=== PATIENT | female | born 1990 | race Two or more races ===

== ENCOUNTER 2016-12-10 16:45 | Emergency (ER) | payer SELFPAY ==
[~2016-12-10] VITALS: Ht 152.4 cm; Wt 82.6 kg
[2016-12-10 17:00] VITALS: BP 138/78
[2016-12-10 17:31] LABS: BILIRUBIN,URINE NEGATIVE (NEG); GLUCOSE,URINE NEGATIVE (NEG); NITRITE,URINE NEGATIVE (NEG); PH,URINE 5.5; PROTEIN,URINE NEGATIVE (NEG-TRACE); UROBILINOGEN,URINE 0.2 mg/dL (0.2 mg/dL)
[2016-12-10 17:43] LABS: RBC,URINE 0 /HPF (0-2)
[2016-12-10 17:44] LABS: BACTERIA,URINE FEW /HPF (0-FEW); SQUAMOUS EPITHELIAL CELL,UR MOD /LPF; WBC,URINE OCC /HPF (0-4)
--- NOTE | 2016-12-10 22:27 | ED.ADGEN ---
Past Medical History Past Medical History: No Pertinent History Past Surgical History: No Surgical History Alcohol Use: None Drug Use: None Adult General Chief Complaint Chief Complaint: ABDOMINAL PAIN HPI HPI Patient is a 26 year old woman, with no significant past no history, who presents emergency department with multiple complaints. Patient states that she is experiencing "burning of the face" she was her face today, denies any new contacts or exposures. She also states she is experiencing some mid abdominal pain, constipation, and is concerned that she may have hemorrhoids. States that she noted blood on the toilet paper when she wiped after having a bowel movement today. Denies any bleeding currently, any bleeding from vagina, no urinary complaints no discharge or drainage. Patient also is complaining that she occasionally have swelling or a feeling of "tiredness", and her right knee. No injuries. Patient's father currently being evaluated in the emergency department for other complaints. No nausea or vomiting, no weakness emesis or tingling, chest pain or shortness of breath, no sick contacts or exposures, no rashes, no swelling of the extremities. Patient is primarily Monegasque speaking, translation is assisted by nurse Carpenter. Review of Systems Review of Systems Constitutional: Denies fever or chills. [] Eyes: Denies change in visual acuity. [] HENT: Denies nasal congestion or sore throat. [] Respiratory: Denies cough or shortness of breath. [] Cardiovascular: Denies chest pain or edema. [] GI: Denies abdominal pain, nausea, vomiting, bloody stools or diarrhea. [] : Denies dysuria. [] Musculoskeletal: Denies back pain or joint pain. [] Integument: Denies rash. [] Neurologic: Denies headache, focal weakness or sensory changes. [] Endocrine: Denies polyuria or polydipsia. [] Lymphatic: Denies swollen glands. [] Psychiatric: Denies depression or anxiety. [] Allergies Allergies Allergies Coded Allergies Type Severity Reaction Last Updated Verified No Known Drug Allergies 12/10/16 No Physical Exam Physical Exam Constitutional: Well developed, well nourished, no acute distress, non-toxic appearance. [] HENT: Normocephalic, atraumatic, bilateral external ears normal, oropharynx moist, no oral exudates, nose normal. [] Eyes: PERRLA, EOMI, conjunctiva normal, no discharge. [] Neck: Normal range of motion, no tenderness, supple, no stridor. [] Cardiovascular:Heart rate regular rhythm, no murmur , S1, S2, rubs or gallops. [ ] Lungs & Thorax: Bilateral breath sounds clear to auscultation, no wheezing, rhonchi, rales. No chest wall crepitus or tenderness. [] Abdomen: Bowel sounds normal, soft, no tenderness, no masses, no pulsatile masses. [] Skin: Warm, dry, no erythema, no rash. [] Back: No tenderness, no CVA tenderness. [] Extremities: No tenderness, no cyanosis, no clubbing, ROM intact, no edema. Negative Homans sign. [] Neurologic: Alert and oriented X 3, normal motor function, normal sensory function, no focal deficits noted. [] Psychologic: Affect normal, judgement normal, mood normal. [] Current Patient Data Vital Signs Vital Signs Date Time Temp Pulse Resp B/P (MAP) Pulse Ox O2 Delivery O2 Flow Rate FiO2 12/10/16 17:00 98.6 90 16 138/78 (98) 100 Room Air 98.6 Lab Values Laboratory Tests Test 12/10/16 16:04 12/10/16 17:00 POC Urine HCG, Qualitative Hcg negative (Negative) Urine Color Yellow Urine Clarity Clear Urine pH 5.5 Urine Specific Webster 1.010 Urine Protein Negative mg/dL (NEG-TRACE) Urine Glucose (UA) Negative mg/dL (NEG) Urine Ketones (Stick) Negative mg/dL (NEG) Urine Blood Negative (NEG) Urine Nitrite Negative (NEG) Urine Bilirubin Negative (NEG) Urine Urobilinogen Dipstick 0.2 mg/dL (0.2 mg/dL) Urine Leukocyte Esterase Negative (NEG) Urine RBC 0 /HPF (0-2) Urine WBC Occ /HPF (0-4) Urine Squamous Epithelial Cells Mod /LPF Urine Bacteria Few /HPF (0-FEW) EKG EKG Not indicated. [] Radiology/Procedures Radiology/Procedures Not indicated. [] Course & Med Decision Making Course & Med Decision Making Pertinent Labs and Imaging studies reviewed. (See chart for details) Patient well-appearing, no signs of facial swelling or areas of irritation, no evidence of mucosal or dental abnormalities, no neck abnormalities, lungs are clear bilaterally, no evidence of swelling rashes or other concerning findings on examination of the knee. No hemorrhoids noted, patient's rectal examination reveals no blood, nontender, with normal tone, no masses palpated. HCG is negative, urinalysis is negative for evidence of infection. This patient is complaining of occasional constipation which causes her to have to strain to have bowel movements, I did discuss dietary changes and importance of staying well-hydrated with patient. Discussed use of gentle products for skin care, and concerning symptoms that prompt return to the emergency department. Patient was given discharge instructions with dietary recommendations for increasing fiber, stay well-hydrated, and importance of establishing a primary care provider for general medical care. Patient voiced understanding and agreement, discharged home in stable condition with plan as above. Dragon Disclaimer Dragon Disclaimer This electronic medical record was generated, in whole or in part, using a voice recognition dictation system. Departure Impression: Primary Impression: Constipation Disposition: 01 HOME, SELF-CARE Condition: STABLE YASIR JIANG DO Dec 10, 2016 22:27
== END 2016-12-10 18:10 | disposition home or self-care (01) ==
LOC: ER 16:45
DX: K59.00 Constipation, unspecified (principal); R22.41 Localized swelling, mass and lump, right lower limb; L98.8 Other specified disorders of the skin and subcutaneous tissue
CPT/HCPCS: 81001; 81025; 99283

== ENCOUNTER 2021-05-18 02:59 | Emergency (ER) | payer SELFPAY ==
[~2021-05-18] VITALS: Ht 167.6 cm; Wt 82.0 kg
[2021-05-18 04:18] LABS: BASO # 0.1 x10^3/uL (0.0-0.2); BASO % 0 % (0-3); EOS # 0.2 x10^3/uL (0.0-0.7); EOS % 1 % (0-3); HEMATOCRIT 39.4 % (36.0-47.0); HEMOGLOBIN 13.7 g/dL (12.0-15.5); LYMPH # 2.4 x10^3/uL (1.0-4.8); LYMPH % 16 % (24-48); MEAN CORPUSCULAR HEMOGLOBIN 31 pg (25-35); MEAN CORPUSCULAR HGB CONC 35 g/dL (31-37); MEAN CORPUSCULAR VOLUME 88 fL (79-100); MONO # 0.9 x10^3/uL (0.0-1.1); MONO % 6 % (0-9); NEUT # 11.9 x10^3/uL (1.8-7.7); NEUT % 77 % (31-73); PLATELET COUNT 254 x10^3/uL (140-400); RED BLOOD COUNT 4.49 x10^6/uL (3.50-5.40); RED CELL DISTRIBUTION WIDTH 12.3 % (11.5-14.5); WHITE BLOOD COUNT 15.5 x10^3/uL (4.0-11.0)
[2021-05-18 04:26] LABS: CALCIUM 9.4 mg/dL (8.5-10.1); CREATININE 0.6 mg/dL (0.6-1.0); GFR 118.2; POTASSIUM 3.7 mmol/L (3.5-5.1)
[2021-05-18 04:33] LABS: ALBUMIN 3.1 g/dL (3.4-5.0); ALBUMIN/GLOBULIN RATIO 0.7 (1.0-1.7); TOTAL BILIRUBIN 0.2 mg/dL (0.2-1.0); TOTAL PROTEIN 7.3 g/dL (6.4-8.2)
[2021-05-18 04:36] VITALS: BP 125/58
[2021-05-18 04:44] LABS: BILIRUBIN,URINE NEGATIVE (NEG); CLARITY,URINE CLEAR; COLOR,URINE YELLOW; NITRITE,URINE NEGATIVE (NEG); PROTEIN,URINE NEGATIVE (NEG-TRACE); UROBILINOGEN,URINE 0.2 mg/dL (0.2 mg/dL)
[2021-05-18 04:52] LABS: BACTERIA,URINE FEW /HPF (0-FEW); RBC,URINE 0 /HPF (0-2); WBC,URINE OCC /HPF (0-4)
--- NOTE | 2021-05-18 05:02 | PHYS DOC ---
Past Medical History Past Medical History: No Pertinent History Additional Past Medical Histor: POLYSYSTIC SYNDROME Past Surgical History: No Surgical History Smoking Status: Never Smoker Alcohol Use: None Drug Use: None General Adult EDM: Chief Complaint: ABDOMINAL PAIN IN HPI: HPI: Patient is a 31 year old female presents with the chief complaint of lower abdominal pain. Pain started today. Patient is -- last menstral period in february. Routine checkup at clinic found out she was within the last week. No associated nausea vomiting diarrhea. Patient denies any vaginal bleeding or vaginal discharge. Review of Systems: Review of Systems: Constitutional: Denies fever or chills. [] Eyes: Denies change in visual acuity. [] HENT: Denies nasal congestion or sore throat. [] Respiratory: Denies cough or shortness of breath. [] Cardiovascular: Denies chest pain or edema. [] GI: Denies abdominal pain, nausea, vomiting, bloody stools or diarrhea. [] : Denies dysuria. [] Musculoskeletal: Denies back pain or joint pain. [] Integument: Denies rash. [] Neurologic: Denies headache, focal weakness or sensory changes. [] Endocrine: Denies polyuria or polydipsia. [] Lymphatic: Denies swollen glands. [] Psychiatric: Denies depression or anxiety. [] Heart Score: C/O Chest Pain: N/A Risk Factors: Risk Factors: DM, Current or recent (<one month) smoker, HTN, HLP, family history of CAD, obesity. Risk Scores: Score 0 - 3: 2.5% MACE over next 6 weeks - Discharge Home Score 4 - 6: 20.3% MACE over next 6 weeks - Admit for Clinical Observation Score 7 - 10: 72.7% MACE over next 6 weeks - Early Invasive Strategies Allergies: Allergies: Allergies Coded Allergies Type Severity Reaction Last Updated Verified No Known Drug Allergies 12/10/16 No Physical Exam: PE: General: alert, no acute distress. Skin: warm, dry and intact, no erythema, no rash. HENT: bilateral external ears normal, oropharynx moist, nose normal. Head:: Normocephalic, atraumatic. Neck: Trachea midline. Eyes: EOMI, Normal conjunctiva, No drainage CARDIOVASCULAR: Regular rate and rhythm RESPIRATORY: No respiratory distress Back: Full range of motion. MUSCULOSKELETAL: Full range of motion of bilateral upper and lower extremities. GASTROINTESTINAL: Abdomen soft without rebound or guarding tenderness to palpation suprapubically left lower quadrant NEUROLOGICAL: Alert and noted to person, place and time. No neurological deficits observed Psychiatric: Cooperative. Normal judgment Current Patient Data: Labs: Laboratory Tests Test 05/18/21 03:58 05/18/21 04:00 05/18/21 04:14 Urine Collection Type Unknown Urine Color Yellow Urine Clarity Clear Urine pH 6.0 (<5.0-8.0) Urine Specific Barker 1.015 (1.000-1.030) Urine Protein Negative mg/dL (NEG-TRACE) Urine Glucose (UA) Negative mg/dL (NEG) Urine Ketones (Stick) Negative mg/dL (NEG) Urine Blood Negative (NEG) Urine Nitrite Negative (NEG) Urine Bilirubin Negative (NEG) Urine Urobilinogen Dipstick 0.2 mg/dL (0.2 mg/dL) Urine Leukocyte Esterase Negative (NEG) Urine RBC 0 /HPF (0-2) Urine WBC Occ /HPF (0-4) Urine Squamous Epithelial Cells Mod /LPF Urine Bacteria Few /HPF (0-FEW) Urine Mucus Slight /LPF POC Urine HCG, Qualitative Hcg positive (Negative) White Blood Count 15.5 x10^3/uL (4.0-11.0) H Red Blood Count 4.49 x10^6/uL (3.50-5.40) Hemoglobin 13.7 g/dL (12.0-15.5) Hematocrit 39.4 % (36.0-47.0) Mean Corpuscular Volume 88 fL (79-100) Mean Corpuscular Hemoglobin 31 pg (25-35) Mean Corpuscular Hemoglobin Concent 35 g/dL (31-37) Red Cell Distribution Width 12.3 % (11.5-14.5) Platelet Count 254 x10^3/uL (140-400) Neutrophils (%) (Auto) 77 % (31-73) H Lymphocytes (%) (Auto) 16 % (24-48) L Monocytes (%) (Auto) 6 % (0-9) Eosinophils (%) (Auto) 1 % (0-3) Basophils (%) (Auto) 0 % (0-3) Neutrophils # (Auto) 11.9 x10^3/uL (1.8-7.7) H Lymphocytes # (Auto) 2.4 x10^3/uL (1.0-4.8) Monocytes # (Auto) 0.9 x10^3/uL (0.0-1.1) Eosinophils # (Auto) 0.2 x10^3/uL (0.0-0.7) Basophils # (Auto) 0.1 x10^3/uL (0.0-0.2) Maternal Serum HCG Beta Subunit 16923 mIU/mL (0-5) H Sodium Level 137 mmol/L (136-145) Potassium Level 3.7 mmol/L (3.5-5.1) Chloride Level 103 mmol/L (98-107) Carbon Dioxide Level 25 mmol/L (21-32) Anion Gap 9 (6-14) Blood Urea Nitrogen 12 mg/dL (7-20) Creatinine 0.6 mg/dL (0.6-1.0) Estimated GFR (Cockcroft-Gault) 118.2 BUN/Creatinine Ratio 20 (6-20) Glucose Level 154 mg/dL (70-99) H Calcium Level 9.4 mg/dL (8.5-10.1) Total Bilirubin 0.2 mg/dL (0.2-1.0) Aspartate Amino Transferase (AST) 15 U/L (15-37) Alanine Aminotransferase (ALT) 27 U/L (14-59) Alkaline Phosphatase 114 U/L (46-116) Total Protein 7.3 g/dL (6.4-8.2) Albumin 3.1 g/dL (3.4-5.0) L Albumin/Globulin Ratio 0.7 (1.0-1.7) L Laboratory Tests 05/18/21 04:14 Laboratory Tests 05/18/21 04:14 Vital Signs: Vital Signs Date Time Temp Pulse Resp B/P (MAP) Pulse Ox O2 Delivery O2 Flow Rate FiO2 05/18/21 03:15 98.2 106 22 141/83 (102) 100 Room Air 98.2 EKG: EKG: [] Radiology/Procedures: Radiology/Procedures: [] Course & Med Decision Making: Course & Med Decision Making Pertinent Labs and Imaging studies reviewed. (See chart for details) [] Patient was evaluated for chief complaint labs obtained no acute ab normalities urine without signs of infection serum beta hCG greater than 60,000 and ultrasound performed shows an IUP heart rate in the 170s approximately 8 weeks. Patient discharged home advised to take Tylenol as needed for pain. Given follow-up information for on-call [employer]. Advised to call to schedule appointment. Иван Disclaimer: Иван Disclaimer: This electronic medical record was generated, in whole or in part, using a voice recognition dictation system. Departure Departure Impression: Primary Impression: Abdominal pain during Disposition: HOME / SELF CARE / HOMELESS Condition: STABLE Referrals: JOE SOMMER MD Patient Instructions: Abdominal Pain During NAZANIN ROY DO May 18, 2021 05:02
--- NOTE | 2021-05-18 06:15 | RAD ---
EXAMINATION: US OB <14 WKS +TV, 05/18/2021 4:42 AM CLINICAL INDICATION: Pelvic pain, TECHNIQUE: Grayscale, color and spectral Doppler ultrasound images of the pelvis via first trimester protocol. COMPARISON: None. FINDINGS: The uterus measures 9.1 x 5.1 x 4.9 cm. There is a gestational sac containing a single living embryo with crown-rump length of 1.89 cm, consistent with gestational age 8 weeks 3 days. There is a yolk sa c present. heart rate is 178 bpm. No subchorionic hemorrhage identified. The right ovary measures 3.2 x 2.4 x 2.1 cm. Probable corpus luteum cyst in the right ovary. Normal r ight ovarian blood flow. Left ovary is not visualized. No adnexal mass or free fluid. IMPRESSION: Single living intrauterine with gestational age 8 weeks 3 days. Electronically signed by: Miranda Moraes MD (05/18/2021 6:12 AM) [facility]
== END 2021-05-18 06:35 | disposition home or self-care (01) ==
LOC: ER 02:59
DX: O26.891 Other specified pregnancy related conditions, first trimester (principal); R10.32 Left lower quadrant pain; Z3A.08 8 weeks gestation of pregnancy
CPT/HCPCS: 36415; 76801; 80053; 81001; 81025; 84702; 85025; 99283; 99284

== ENCOUNTER → 2021-06-17 | Emergency (ER) | payer SELFPAY ==
[2021-05-18 04:36] VITALS: BP 125/58
== END | disposition left against medical advice (07) ==
LOC: ER 08:45
DX: J02.9 Acute pharyngitis, unspecified (principal); R50.9 Fever, unspecified; Z53.21 Procedure and treatment not carried out due to patient leaving prior to being seen by health care provider